=== PATIENT | male | born 1985 | race Caucasian/White ===

== ENCOUNTER 2021-04-03 11:40 | Emergency (ER) | payer BC ==
[~2021-04-03] VITALS: Ht 177.8 cm; Wt 117.0 kg
[2021-04-03 11:59] VITALS: BP 149/97
--- NOTE | 2021-04-03 12:04 | NUR ---
PT RETURNED TO LOBBY AT THIS TIME
--- NOTE | 2021-04-03 13:07 | NUR ---
URINE PLACED IN DIRTY UTILITY.
--- NOTE | 2021-04-03 14:07 | NUR ---
PT TAKEN TO CHAIR C AT THIS TIME
--- NOTE | 2021-04-03 14:13 | NUR ---
DESTINY NOLASCO EXAMINING PT
[2021-04-03] MEDS ORDERED: CYCLOBENZAPRINE 10 MG TAB PO ONE (14:30)
[2021-04-03] MEDS ORDERED: KETOROLAC 30 MG/ML VIAL IM ONE (14:30)
[2021-04-03] MEDS ORDERED: CYCL-711 PO (15:04)
[2021-04-03] MEDS ORDERED: NAPR-54 PO (15:04)
[2021-04-03] MEDS ORDERED: LID5T TP (15:04)
--- NOTE | 2021-04-03 15:10 | NUR ---
PATIENT PRESENTS TO ED WITH BACK PAIN AFTER PLAYING BASKETBALL LAST . PT HAS FULL ROM IN BUE WITH MODERATE PAIN. DENIES N/V/D; SKIN IS PINK/WARM/DRY; AAOX4 WITH EVEN AND STEADY GAIT; LUNGS CLEAR BL; HR EVEN AND REGULAR; PT DENIES ANY FEVER, CP, SOB, OR COUGH AT THIS TIME; PATIENT STATES PAIN OF 6/10 AT THIS TIME; VSS; PATIENT POSITIONED FOR COMFORT; HOB ELEVATED; BEDRAILS UP X2; BED DOWN. ER MD MADE AWARE OF PT STATUS. PMH: HTN MEDS: LISINOPRIL ALLERGIES: NKA
--- NOTE | 2021-04-03 15:34 | NUR ---
Patient discharged with v/s stable. Written and verbal after care instructions given and explained. Patient alert, oriented and verbalized understanding of instructions. Ambulatory with steady gait. All questions addressed prior to discharge. ID band removed. Patient advised to follow up with PMD. Rx of FLEXERIL, LIDODERM, NAPROSYN given. Patient educated on indication of medication including possible reaction and side effects. Opportunity to ask questions provided and answered.
[2021-04-03 15:35] VITALS: BP 149/97
== END 2021-04-03 15:30 | disposition home or self-care (01) ==
LOC: MED 11:40
DX: S39.012A Strain of muscle, fascia and tendon of lower back, initial encounter (principal); Z98.890 Other specified postprocedural states; X58.XXXA Exposure to other specified factors, initial encounter; Y93.67 Activity, basketball; Y92.89 Other specified places as the place of occurrence of the external cause; Y99.8 Other external cause status
CPT/HCPCS: 72110; 81002; 96372; 99283; J1885